=== PATIENT | male | born 1970 | race Caucasian/White ===

== ENCOUNTER 2016-06-27 12:30 | Emergency (ER) | payer BC ==
[2016-06-27 12:49] VITALS: BP 130/84
[2016-06-27] MEDS ORDERED: Lidocaine 1% 20 ML MDV ONE (13:06)
--- NOTE | 2016-06-27 13:13 | EDM.PDOC ---
ED HPI GENERAL MEDICAL PROBLEM - General Chief Complaint: Upper Extremity Injury/Pain Stated Complaint: FINGER LACERATION Time Seen by Provider: 06/27/16 13:00 Source of Information: Reports: Patient History Limitations: Reports: No Limitations - History of Present Illness INITIAL COMMENTS - FREE TEXT/NARRATIVE: 45 YO WM presents to ER with injury to right index finger which occurred just prior to arrival. 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 Pt reports pain and bleeding from wound immediately. Pt had a tetanus update 2 months ago. Pt denies any other injury. Pt is right hand dominate Onset: Today Duration: Hour(s): (1) Location: Reports: Upper Extremity, Right Quality: Reports: Ache Severity: Moderate Improves with: Reports: Cold Therapy Worsens with: Reports: Movement Associated Symptoms: Reports: No Other Symptoms Right 2-Index finger Pain Score (Numeric/FACES): 4 - Related Data Allergies Allergy/AdvReac Type Severity Reaction Status Date / Time No Known Drug Allergies Allergy Cannot Verified 06/27/16 12:49 Remember Home Meds: Home Meds Amoxicillin/Clavulanate K [Augmentin 875 MG/125 MG] 1 tab PO Q12HR #20 tablet [Rx] traMADol [Ultram] 50 mg PO Q6H PRN #15 tablet 06/27/16 [Rx] Past Medical History HEENT History: Reports: None Musculoskeletal History: Reports: Fracture - Infectious Disease History Infectious Disease History: Reports: Chicken Pox - Past Surgical History Head Surgeries/Procedures: Reports: None Other HEENT Surgeries/Procedures: wisdom teeth Musculoskeletal Surgical History: Reports: None Social & Family History - Family History Family Medical History: Noncontributory - Tobacco Use Smoking Status *Q: Never Smoker Second Hand Smoke Exposure: No - Caffeine Use Caffeine Use: Reports: None - Recreational Drug Use Recreational Drug Use: No Review of Systems - Review of Systems Review Of Systems: See Below Constitutional: Reports: No Symptoms Eyes: Reports: No Symptoms Ears: Reports: No Symptoms Nose: Reports: No Symptoms Mouth/Throat: Reports: No Symptoms Respiratory: Reports: No Symptoms Cardiovascular: Reports: No Symptoms GI/Abdominal: Reports: No Symptoms Genitourinary: Reports: No Symptoms Musculoskeletal: Reports: Other (pain with movement to right index finger) Skin: Reports: Wound (5cm laceration to finger tip of right index finger) Neurological: Reports: No Symptoms Psychiatric: Reports: No Symptoms Trauma Exam - Physical Exam Exam: See Below Exam Limited By: No Limitations General Appearance: Reports: Alert, WD/WN, No Apparent Distress Head: Reports: Atraumatic, Normocephalic Eyes: Bilateral Eye: EOMI, Normal Inspection, PERRL Neck: Reports: Non-Tender, Full Range of Motion, Normal Alignment, Normal Inspection Respiratory Exam: Reports: No Respiratory Distress, Lungs Clear, Normal Breath Sounds Cardiovascular: Reports: Normal Peripheral Pulses, Regular Rate, Rhythm, No Edema, No Gallop, No JVD, No Murmur, No Rub GI/Abdominal: Reports: Normal Bowel Sounds, Soft, Non-Tender, No Organomegaly, No Distention, No Abnormal Bruit, No Mass Back: Reports: Full Range of Motion, Normal Inspection, Non-Tender Extremities: Pain with Movement (right 2nd finger DIP pain) 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, No Motor/Sensory Deficits, Alert , Normal Mood/Affect, Oriented x 3 Skin: Reports: Other (5cm laceration to right index finger) ED TRAUMA EXTREMITY PROCEDURES - Laceration/Wound Repair Right Finger Lac/wound length in cm: 5 Appearance: superficial Distal NVT: neuro & vascular intact, no tendon injury Anesthetic type: digital Local anesthesia - Lidocaine (Xylocaine): 1% plain Local anesthetic volume: other (10cc) Skin prep: chlorhexidine (hibiciens), saline, sterile drape Exploration/Debridement/Repair: wound explored Closed with: sutures Suture size: 4-0 # of sutures: 4 Suture type: nylon Sterile dressing applied: nurse Tetanus status addressed: Yes Complications: No Course - Vital Signs Last Recorded V/S: Last Vital Signs Temp 36.7 C 06/27/16 12:45 Pulse 61 06/27/16 12:45 Resp 20 06/27/16 12:45 BP 130/84 06/27/16 12:45 Pulse Ox 96 06/27/16 12:45 - Orders/Labs/Meds Orders: Active Orders 24 hr Category Date Time Status Hand Comp Min 3V Rt [CR] Stat Exams 06/27/16 12:44 Ordered Meds: Medications Discontinued Medications Generic Name Dose Route Start Last Admin Trade Name Freq PRN Reason Stop Dose Admin Cefazolin Sodium 1 gm 06/27/16 13:21 Ancef IM 06/27/16 13:22 ONETIME ONE Lidocaine HCl Confirm 06/27/16 13:06 Xylocaine 1% Administered 06/27/16 13:07 Dose 20 ml .ROUTE .STK-MED ONE Departure - Departure Time of Disposition: 13:42 Disposition: Home, Self-Care 01 Condition: good Clinical Impression: Laceration of right hand Qualifiers: Encounter type: initial encounter Fracture of finger of right hand Qualifiers: Encounter type: initial encounter Finger: index finger Fracture type: open Phalanx: distal Fracture alignment: nondisplaced Qualified Code(s): S62.660B - Nondisplaced fracture of distal phalanx of right index finger, initial encounter for open fracture - Discharge Information Prescriptions: Amoxicillin/Clavulanate K [Augmentin 875 MG/125 MG] 1 tab PO Q12HR #20 tablet traMADol [Ultram] 50 mg PO Q6H PRN #15 tablet PRN Reason: Pain Instructions: Laceration Care, Adult, [id number], Finger Fracture, Easy-to- Read, Crush Injury, Fingers or Toes, [id number] Referrals: Kell Mcnamara PA-C [Primary Care Provider] - 1 Week Forms: ED Department Discharge - My Orders Last 24 Hours: My Active Orders 06/27/16 12:44 Hand Comp Min 3V Rt [CR] Stat - Assessment/Plan Last 24 Hours: My Active Orders 06/27/16 12:44 Hand Comp Min 3V Rt [CR] Stat Assessment:: 1. open fracture to DIP of right index finger 2. 5cm laceration to finger tip of right index finger Plan: 1. ancef 1g IM 2. sutured closure of right index finger 3. aluminum foam finger tip splint 4. ultram 50mg PO Q6 for pain PRN 5. augmentin 875mg PO BID x 10 days 6. discharge home 7. follow up in clinic in 10-14 days for recheck and sutire removal
[2016-06-27] MEDS ORDERED: ceFAZolin 1 GM Vial IM ONE (13:21)
== END 2016-06-27 13:50 | disposition home or self-care (01) ==
LOC: KA.ED 12:30
DX: S62.660B Nondisplaced fracture of distal phalanx of right index finger, initial encounter for open fracture (principal); W23.0XXA Caught, crushed, jammed, or pinched between moving objects, initial encounter
CPT/HCPCS: 12002; 73130; 96372; 99283; J0690